=== PATIENT | female | born 1995 | race Asian ===

== ENCOUNTER → 2023-03-20 11:32 | Outpatient (CLI) | payer OTHER, MEDICAID, SELFPAY ==
[2023-03-20 12:53] LABS: Influenza A - CEPHEID Flu A NEGATIVE (NEGATIVE); Influenza B - CEPHEID Flu B NEGATIVE (NEGATIVE); Respiratory Syncytial Virus POSITIVE (Negative)
[2023-03-20 13:15] LABS: COVID-19 CEPHEID 4-PLEX PCR Negative (Negative)
== END ==
PROVIDERS: Visit Provider Registered Nurse
DX: R05.1 Acute cough (principal)
CPT/HCPCS: 0241U

== ENCOUNTER → 2023-11-08 12:13 | Outpatient (CLI) | payer OTHER, SELFPAY | LOC: LAB 12:15 | PROVIDERS: Referring Provider Internal Medicine; Visit Provider Internal Medicine | DX: Z11.1 Encounter for screening for respiratory tuberculosis (principal) | CPT/HCPCS: 36415; 86480 ==

== ENCOUNTER → 2024-02-28 17:05 | Outpatient (CLI) | payer OTHER, SELFPAY ==
[2024-02-28 17:58] LABS: Influenza A - CEPHEID Flu A NEGATIVE (NEGATIVE); Influenza B - CEPHEID Flu B NEGATIVE (NEGATIVE); Respiratory Syncytial Virus Negative (Negative)
[2024-02-28 18:04] LABS: COVID-19 CEPHEID 4-PLEX PCR Negative (Negative)
== END ==
PROVIDERS: Visit Provider Student in an Organized Health Care Education/Training Program
DX: R51.9 Headache, unspecified (principal); J02.9 Acute pharyngitis, unspecified; H65.93 Unspecified nonsuppurative otitis media, bilateral
CPT/HCPCS: 0241U; 87070